=== PATIENT | male | born 1975 | race Caucasian/White ===

== ENCOUNTER 2022-07-22 12:47 | Inpatient (IN) | payer BC ==
[2022-07-22] MEDS ORDERED: THIAMINE 100 MG/ML 2 ML VIAL IVP STA (13:05)
--- NOTE | 2022-07-22 13:11 | ED ---
General Adult HPI - General Chief complaint: Recheck/Abnormal Lab/Rx Stated complaint: Altered Time Seen by Provider: 07/22/22 12:51 Source: patient, EMS, RN notes reviewed Mode of arrival: EMS Limitations: no limitations - History of Present Illness Initial comments: Patient is a pleasant 47-year-old male presenting to the emergency department from [place]. There is concern for altered mental status, history is limited. Patient believes he is here for chronic sciatic pain. Patient states he was recently detoxed a different hospital. Patient went home and did drink alcohol Monday. Patient believes he has been at and heart since Monday now. Patient confronted regarding change in mental status and answers "well there may be some of that "patient denies hallucinations however report states patient has been hallucinating. Patient states he does have some floaters however that is chronic and unchanged for him. Patient does answer some questions inappropriately. Patient answers other questions appropriately. Patient denies suicidal or homicidal thoughts. - Related Data Allergies Allergy/AdvReac Type Severity Reaction Status Date / Time tramadol [From [facility]] Allergy Unknown Verified 07/22/22 13:11 Review of Systems ROS Statement: Those systems with pertinent positive or pertinent negative responses have been documented in the HPI. ROS Other: All systems not noted in ROS Statement are negative. Constitutional: Denies: fever Eyes: Denies: eye pain ENT: Denies: ear pain Respiratory: Denies: cough Cardiovascular: Denies: chest pain Endocrine: Denies: fatigue Gastrointestinal: Denies: abdominal pain Genitourinary: Denies: dysuria Skin: Denies: rash Neurological: Reports: as per HPI Past Medical History Past Medical History: Hypertension History of Any Multi-Drug Resistant Organisms: None Reported Past Surgical History: No Surgical Hx Reported Past Psychological History: Anxiety, Depression Smoking Status: Never smoker Past Alcohol Use History: Daily Past Drug Use History: Cocaine, Heroin, Marijuana General Exam Limitations: no limitations General appearance: alert, in no apparent distress Head exam: Present: atraumatic, normocephalic Eye exam: Present: PERRL, EOMI, scleral icterus ENT exam: Present: normal oropharynx Neck exam: Present: normal inspection Respiratory exam: Present: normal lung sounds bilaterally Cardiovascular Exam: Present: regular rate, normal rhythm GI/Abdominal exam: Present: soft. Absent: tenderness Extremities exam: Present: normal inspection Neurological exam: Present: alert, altered, CN II-XII intact. Absent: motor sensory deficit Expanded Neurological exam: Present: protecting the airway Patient oriented to: Present: person. Absent: place (Patient believes he is in [place]), time (Patient answers the year is 1921 when asked, even when asked to confirm) Cranial nerves: EOM's Intact: Normal Sensory exam: Upper Extremity Light Touch: Normal, Lower Extremity Light Touch: Normal Motor strength exam: RUE: 5, LUE: 5, RLE: 5, LLE: 5 Eye Response: (4) open spontaneously Motor Response: (6) obeys commands Verbal Response: (4) confused conversation Psychiatric exam: Present: normal affect, normal mood Skin exam: Present: normal color Course Vital Signs 07/22/22 12:52 Temperature 97.7 F Pulse Rate 61 Respiratory 18 Rate Blood Pressure 108/61 O2 Sat by Pulse 97 Oximetry - Reevaluation(s) Reevaluation #1: 07/22/22 13:42 Witnessed by nursing staff talking to people who were not in the room. Patient also was complaining that there are puppies in his shoes. EKG Findings - EKG Results: EKG: interpreted by ERMD (Left axis.), sinus rhythm, normal QRS, normal ST/T EKG shows: bradycardia Medical Decision Making - Medical Decision Making Patient reevaluated and updated. Platelet count still pending. Case discussed with Dr. herman Roa, who will admit covering hospital call. Neurology will be placed on consult. - Lab Data Result diagrams: 07/22/22 13:16 07/22/22 13:16 Lab Results 07/22/22 07/22/22 07/22/22 Range/Units 13:16 13:16 13:16 WBC 3.1 L (3.8-10.6) k/uL RBC 3.41 L (4.30-5.90) m/uL Hgb 13.5 (13.0-17.5) gm/dL Hct 38.1 L (39.0-53.0) % MCV 111.8 H (80.0-100.0) fL MCH 39.6 H (25.0-35.0) pg MCHC 35.4 (31.0-37.0) g/dL RDW 13.6 (11.5-15.5) % MPV 11.4 Macrocytosis Marked A PT 14.6 H (9.0-12.0) sec INR 1.4 H (<1.2) APTT 28.9 (22.0-30.0) sec Sodium (137-145) mmol/L Potassium (3.5-5.1) mmol/L Chloride (98-107) mmol/L Carbon Dioxide (22-30) mmol/L Anion Gap mmol/L BUN (9-20) mg/dL Creatinine (0.66-1.25) mg/dL Est GFR (CKD-EPI)AfAm (>60 ml/min/1.73 sqM) Est GFR (CKD-EPI)NonAf (>60 ml/min/1.73 sqM) Glucose (74-99) mg/dL Calcium (8.4-10.2) mg/dL Total Bilirubin (0.2-1.3) mg/dL AST (17-59) U/L ALT (4-49) U/L Alkaline Phosphatase (38-126) U/L Ammonia (<30) umol/L Total Protein (6.3-8.2) g/dL Albumin (3.5-5.0) g/dL Urine Color Dark Brown Urine Appearance Clear (Clear) Urine pH 5.5 (5.0-8.0) Ur Specific [place] 1.029 (1.001-1.035) Urine Protein 1+ H (Negative) Urine Glucose (UA) Negative (Negative) Urine Ketones Negative (Negative) Urine Blood Negative (Negative) Urine Nitrite Negative (Negative) Urine Bilirubin 1+ H (Negative) Urine Urobilinogen 4.0 (<2.0) mg/dL Ur Leukocyte Esterase Negative (Negative) Urine RBC <1 (0-5) /hpf Urine WBC 3 (0-5) /hpf Ur Squamous Epith Cells <1 (0-4) /hpf Urine Bacteria Rare H (None) /hpf Hyaline Casts 4 H (0-2) /lpf Urine Mucus Moderate H (None) /hpf Urine Opiates Screen Not Detected (NotDetected) Ur Oxycodone Screen Not Detected (NotDetected) Urine Methadone Screen Not Detected (NotDetected) Ur Propoxyphene Screen Not Detected (NotDetected) Ur Barbiturates Screen Not Detected (NotDetected) U Tricyclic Antidepress Not Detected (NotDetected) Ur Phencyclidine Scrn Not Detected (NotDetected) Ur Amphetamines Screen Not Detected (NotDetected) U Methamphetamines Scrn Not Detected (NotDetected) U Benzodiazepines Scrn Detected H (NotDetected) Urine Cocaine Screen Not Detected (NotDetected) U Marijuana (THC) Screen Detected H (NotDetected) Serum Alcohol mg/dL 07/22/22 07/22/22 Range/Units 13:16 13:16 WBC (3.8-10.6) k/uL RBC (4.30-5.90) m/uL Hgb (13.0-17.5) gm/dL Hct (39.0-53.0) % MCV (80.0-100.0) fL MCH (25.0-35.0) pg MCHC (31.0-37.0) g/dL RDW (11.5-15.5) % MPV Macrocytosis PT (9.0-12.0) sec INR (<1.2) APTT (22.0-30.0) sec Sodium 135 L (137-145) mmol/L Potassium 3.9 (3.5-5.1) mmol/L Chloride 101 (98-107) mmol/L Carbon Dioxide 27 (22-30) mmol/L Anion Gap 7 mmol/L BUN 16 (9-20) mg/dL Creatinine 0.89 (0.66-1.25) mg/dL Est GFR (CKD-EPI)AfAm >90 (>60 ml/min/1.73 sqM) Est GFR (CKD-EPI)NonAf >90 (>60 ml/min/1.73 sqM) Glucose 103 H (74-99) mg/dL Calcium 8.5 (8.4-10.2) mg/dL Total Bilirubin 4.1 H (0.2-1.3) mg/dL AST 156 H (17-59) U/L ALT 70 H (4-49) U/L Alkaline Phosphatase 72 (38-126) U/L Ammonia 27 (<30) umol/L Total Protein 6.6 (6.3-8.2) g/dL Albumin 3.6 (3.5-5.0) g/dL Urine Color Urine Appearance (Clear) Urine pH (5.0-8.0) Ur Specific [place] (1.001-1.035) Urine Protein (Negative) Urine Glucose (UA) (Negative) Urine Ketones (Negative) Urine Blood (Negative) Urine Nitrite (Negative) Urine Bilirubin (Negative) Urine Urobilinogen (<2.0) mg/dL Ur Leukocyte Esterase (Negative) Urine RBC (0-5) /hpf Urine WBC (0-5) /hpf Ur Squamous Epith Cells (0-4) /hpf Urine Bacteria (None) /hpf Hyaline Casts (0-2) /lpf Urine Mucus (None) /hpf Urine Opiates Screen (NotDetected) Ur Oxycodone Screen (NotDetected) Urine Methadone Screen (NotDetected) Ur Propoxyphene Screen (NotDetected) Ur Barbiturates Screen (NotDetected) U Tricyclic Antidepress (NotDetected) Ur Phencyclidine Scrn (NotDetected) Ur Amphetamines Screen (NotDetected) U Methamphetamines Scrn (NotDetected) U Benzodiazepines Scrn (NotDetected) Urine Cocaine Screen (NotDetected) U Marijuana (THC) Screen (NotDetected) Serum Alcohol <10 mg/dL Disposition Clinical Impression: Altered mental status Disposition: ADMITTED IP TO THIS [facility] Condition: Serious Is patient prescribed a controlled substance at d/c from ED?: No Referrals: Nonstaff,Physician [Primary Care Provider] - 1-2 days Time of Disposition: 14:16
[2022-07-22 13:33] LABS: Basophils % (A) 1 %; Eosinophils # (A) 0.1 k/uL (0-0.7); Eosinophils % (A) 3 %; HCT 38.1 % (39.0-53.0); HGB 13.5 gm/dL (13.0-17.5); Lymphocytes % (A) 32 %; MCH 39.6 pg (25.0-35.0); MCHC 35.4 g/dL (31.0-37.0); MCV 111.8 fL (80.0-100.0); Macrocytosis Marked; Mean Platelet Volume 11.4; Monocytes # (A) 0.3 k/uL (0-1.0); Monocytes % (A) 9 %; Neutrophils # (A) 1.6 k/uL (1.3-7.7); Neutrophils % (A) 53 %; RBC 3.41 m/uL (4.30-5.90); RDW 13.6 % (11.5-15.5); WBC 3.1 k/uL (3.8-10.6)
[2022-07-22 13:46] LABS: Appearance,Urine Clear (Clear); Bacteria,Urine Rare /hpf; Bilirubin,Urine 1+ (Negative); Blood,Urine Negative (Negative); Color,Urine Dark Brown; Glucose,Urine (UA) Negative (Negative); Hyaline Casts,Urine 4 /lpf (0-2); Ketones,Urine Negative (Negative); Leukocyte Esterase,Urine Negative (Negative); Mucus,Urine Moderate /hpf; Nitrite,Urine Negative (Negative); PH, Urine 5.5 (5.0-8.0); Protein,Urine 1+ (Negative); RBC,Urine <1 /hpf (0-5); Specific Gravity,Urine 1.029 (1.001-1.035); Squamous Epithelial Cell,Urine <1 /hpf (0-4); WBC,Urine 3 /hpf (0-5)
[2022-07-22 13:48] LABS: ALT 70 U/L (4-49); AST 156 U/L (17-59); African American GFR (CKD) >90 (>60 ml/min/1.73 sqM); Albumin 3.6 g/dL (3.5-5.0); Alcohol <10 mg/dL; Alkaline Phosphatase 72 U/L (38-126); Anion Gap 7 mmol/L; Blood Urea Nitrogen 16 mg/dL (9-20); Calcium 8.5 mg/dL (8.4-10.2); Carbon Dioxide 27 mmol/L (22-30); Chloride 101 mmol/L (98-107); Glucose 103 mg/dL (74-99); Non-African American GFR(CKD) >90 (>60 ml/min/1.73 sqM); Potassium 3.9 mmol/L (3.5-5.1); Sodium 135 mmol/L (137-145); Total Bilirubin 4.1 mg/dL (0.2-1.3); Total Protein 6.6 g/dL (6.3-8.2)
[2022-07-22 13:49] LABS: INR 1.4 (<1.2); Partial Thromboplastin Time 28.9 sec (22.0-30.0); Prothrombin Time 14.6 sec (9.0-12.0)
--- NOTE | 2022-07-22 13:49 | XR ---
EXAMINATION TYPE: XR chest 2V DATE OF EXAM: 07/22/2022 1:40 PM COMPARISON: None TECHNIQUE: XR chest 2V Frontal and lateral views of the chest. CLINICAL INDICATION:Male, 47 years old with history of altered mental status; FINDINGS: Lungs/Pleura: There is no evidence of pleural effusion, focal consolidation, or pneumothorax. Pulmonary vascularity: Unremarkable. Heart/mediastinum: Cardiomediastinal silhouette is unremarkable. Musculoskeletal: No acute osseous pathology. IMPRESSION: No acute cardiopulmonary disease/process.
[2022-07-22 13:59] LABS: Amphetamine Screen,Urine Not Detected (NotDetected); Barbiturate Screen,Urine Not Detected (NotDetected); Benzodiazepines Screen,Urine Detected (NotDetected); Cocaine Screen,Urine Not Detected (NotDetected); Methadone Screen, Urine Not Detected (NotDetected); Opiate Screen,Urine Not Detected (NotDetected); Oxycodone Screen, Urine Not Detected (NotDetected); Phencyclidine Screen,Urine Not Detected (NotDetected); Tricyclic Antidepressant,Urine Not Detected (NotDetected); Urn Cannabinoid Scrn Detected (NotDetected)
--- NOTE | 2022-07-22 14:06 | CT ---
EXAMINATION TYPE: CT brain wo con DATE OF EXAM: 07/22/2022 COMPARISON: None HISTORY: Altered mental status CT DLP: 1111.6 mGycm. Automated Exposure Control for Dose Reduction was Utilized. TECHNIQUE: CT scan of the head is performed without contrast. FINDINGS: The ventricles, basal cisterns and sulci over the convexities are within normal limits and there is n o mass effect or shift of the midline structures. No abnormal density is seen throughout the brain parenchyma and there is no acute intra or extra-axia l hemorrhage. The posterior fossa including the brainstem, fourth ventricle and cerebellar pontine angles appear gr ossly normal. Intraorbital contents are normal and symmetric. Visualized paranasal sinuses and mastoid air cells ar e well aerated. Calvarium is intact. IMPRESSION: No significant abnormality seen. There is no acute bleed or mass effect
[2022-07-22] MEDS ORDERED: LORazepam 0.5 MG TAB PO PRN (14:16)
[2022-07-22] MEDS ORDERED: NALOXONE 0.4 MG/ML 1 ML VIAL IV PRN ×2 (14:16→15:15)
[2022-07-22] MEDS ORDERED: LORazepam 2 MG/ML INJ IV PRN (14:16)
[2022-07-22] MEDS ORDERED: LORazepam 1 MG TAB PO PRN ×4 (14:16)
[2022-07-22 14:17] LABS: Platelet Count 58 k/uL (150-450)
[2022-07-22] MEDS ORDERED: ACETAMINOPHEN TAB 325 MG TAB PO PRN (15:15)
[2022-07-22] MEDS ORDERED: IBUPROFEN 400 MG TAB PO PRN (15:15)
[2022-07-22] MEDS ORDERED: ONDANSETRON 4 MG TAB PO PRN (15:22)
[2022-07-22] MEDS ORDERED: traZODone HCL 50 MG TAB PO PRN (15:22)
--- NOTE | 2022-07-22 15:32 | P.HPIM ---
History of Present Illness H&P Date: 07/22/22 Chief Complaint: altered mental status 47-year-old male with history of alcoholism, chronic back pain and hypertension who presented to the emergency department from [place] because of concern for altered mental status. Patient believes he is here for chronic sciatic pain. Patient states he was recently detoxed at a different hospital, went home then went to [place]. It was reported that he was having hallucinations, seeing puppies in the room. He also states that he was seeing floaters which is normal for him. He denied auditory hallucinations. Denies suicidal thoughts. He wants to go home today and is currently refusing to stay in the hospital. Evaluation in the emergency department showed WBC count 3.1, hemoglobin 13.5, hematocrit 38.1, platelet count 58, urine tox positive for benzodiazepine and marijuana. Sodium 135, respectively as well as normal. Head CT negative. CXR with nothing acute. EKG with sinus bradycardia. Patient will be admitted for further evaluation and management. Review of Systems Complete review of system performed, pertinent positives per HPI, otherwise negative Past Medical History Past Medical History: Hypertension History of Any Multi-Drug Resistant Organisms: None Reported Past Surgical History: No Surgical Hx Reported Past Psychological History: Anxiety, Depression Smoking Status: Never smoker Past Alcohol Use History: Daily Past Drug Use History: Cocaine, Heroin, Marijuana Medications and Allergies Home Medications Medication Instructions Recorded Confirmed Type Acetaminophen [Tylenol Arthritis] 650 mg PO Q4H PRN MDD 1950 MG 07/22/22 07/22/22 History Calcium, Magnesium, Zinc, With 1 tab PO TID PRN 07/22/22 07/22/22 History Vitamin D Chlorpheniramine Maleate 4 mg PO Q4H PRN 07/22/22 07/22/22 History [Chlor-Trimeton] Famotidine [Pepcid] 20 mg PO BID 07/22/22 07/22/22 History Ibuprofen [Motrin Ib] 600 mg PO Q6H PRN 07/22/22 07/22/22 History LORazepam [Ativan] 1 - 2 mg PO Q4H PRN 07/22/22 07/22/22 History Levsin (Unknown Strength) 1 dose PO QID PRN 07/22/22 07/22/22 History Loperamide HCl [Imodium A-D] 2 - 4 mg PO QID PRN MDD 16MG 07/22/22 07/22/22 History Mag Hydrox/Aluminum Hyd/Simeth 30 ml PO Q4H PRN 07/22/22 07/22/22 History [Mylanta Maximum Strength Liq] Magnesium Hydroxide [Milk of 2,400 mg PO BID PRN 07/22/22 07/22/22 History Magnesia] Multivitamins, Thera [Multivitamin 1 tab PO DAILY 07/22/22 07/22/22 History (formulary)] Thiamine [Vitamin B-1] 100 mg PO DAILY 07/22/22 07/22/22 History cloNIDine HCL [Catapres] 0.1 - 0.3 mg PO Q4H PRN 07/22/22 07/22/22 History guaiFENesin [guaiFENesin Oral 200 mg PO Q4H PRN 07/22/22 07/22/22 History Solution] ondansetron HCL [Zofran] 8 mg PO Q6H PRN 07/22/22 07/22/22 History traZODone HCL [Desyrel] 50 - 150 mg PO HS PRN 07/22/22 07/22/22 History Allergies Allergy/AdvReac Type Severity Reaction Status Date / Time tramadol [From Ultram] Allergy Unknown Verified 07/22/22 14:50 Physical Exam Vitals: Vital Signs Temp Pulse Resp BP Pulse Ox 07/22/22 12:52 97.7 F 61 18 108/61 97 Intake and Output 07/21/22 07/22/22 07/22/22 22:59 06:59 14:59 Other: Weight 72.575 kg Constitutional: No acute distress, conversant, pleasant Eyes:Anicteric sclerae, moist conjunctiva, no lid-lag, PERRLA, ENMT: Oropharynx clear, no erythema, exudates Neck: Supple, FROM, no masses, or JVD, No carotid bruits, No thyromegaly Lungs: Clear to auscultation, Clear to percussion, Normal respiratory effort, no accessory muscle use Cardiovascular: Heart regular in rate and rhythm, No murmurs, gallops, or rubs, No peripheral edema Abdominal: Soft, Nontender, no guarding, rebound or rigidity, Normoactive bowel sounds, No hepatomegaly, No splenomegaly, No palpable mass Skin: Normal temperature, tone, texture, turgor, no induration, No subcutaneous nodules, No rash, lesions, No ulcers Extremities: No digital cyanosis, No clubbing, Pedal pulses intact and symmetrical, Radial pulses intact and symmetrical, No calf tenderness Psychiatric: Alert and oriented to person, place and time, appropriate affect, intact judgement Neuro: Muscles Strength 5/5 in all 4 extremities, Sensation to light touch grossly present throughout, Cranial nerves II-XII grossly intact, no focal sensory deficits Results CBC & Chem 7: 07/22/22 13:16 07/22/22 13:16 Labs: Abnormal Lab Results - Last 24 Hours (Table) 07/22/22 07/22/22 07/22/22 Range/Units 13:16 13:16 13:16 WBC 3.1 L (3.8-10.6) k/uL RBC 3.41 L (4.30-5.90) m/uL Hct 38.1 L (39.0-53.0) % MCV 111.8 H (80.0-100.0) fL MCH 39.6 H (25.0-35.0) pg Plt Count 58 L (150-450) k/uL Macrocytosis Marked A PT 14.6 H (9.0-12.0) sec INR 1.4 H (<1.2) Sodium (137-145) mmol/L Glucose (74-99) mg/dL Total Bilirubin (0.2-1.3) mg/dL AST (17-59) U/L ALT (4-49) U/L Urine Protein 1+ H (Negative) Urine Bilirubin 1+ H (Negative) Urine Bacteria Rare H (None) /hpf Hyaline Casts 4 H (0-2) /lpf Urine Mucus Moderate H (None) /hpf U Benzodiazepines Scrn Detected H (NotDetected) U Marijuana (THC) Screen Detected H (NotDetected) 07/22/22 Range/Units 13:16 WBC (3.8-10.6) k/uL RBC (4.30-5.90) m/uL Hct (39.0-53.0) % MCV (80.0-100.0) fL MCH (25.0-35.0) pg Plt Count (150-450) k/uL Macrocytosis PT (9.0-12.0) sec INR (<1.2) Sodium 135 L (137-145) mmol/L Glucose 103 H (74-99) mg/dL Total Bilirubin 4.1 H (0.2-1.3) mg/dL AST 156 H (17-59) U/L ALT 70 H (4-49) U/L Urine Protein (Negative) Urine Bilirubin (Negative) Urine Bacteria (None) /hpf Hyaline Casts (0-2) /lpf Urine Mucus (None) /hpf U Benzodiazepines Scrn (NotDetected) U Marijuana (THC) Screen (NotDetected) Assessment and Plan Plan: Acute encephalopathy with hallucinations Neurology and psychiatry evaluation He wasnts to leave AMA but can't at this point, not safe, will apply elopement precautions Could be sec to etoh withdrawal, start etoh withdrawal protocol Thiamine, MV, folic acid Leukopenia and thrombocytopenia Likely sec to etoh abuse Marijuana abuse [employer] to quit HTN Chronic back pain Stable Resume meds. Admit to inpatient expected length of stay more than 2 midnights.
[2022-07-22] MEDS: MULTIVITAMINS, THERA 1 EACH TAB PO SCH (18:17)
[2022-07-22] MEDS: FOLIC ACID 1 MG TAB PO SCH (18:17)
[2022-07-23] MEDS: FOLIC ACID 1 MG TAB PO SCH (08:33)
[2022-07-23] MEDS: MULTIVITAMINS, THERA 1 EACH TAB PO SCH (08:34)
[2022-07-23] MEDS ORDERED: MULTIVITAMINS, THERA 1 EACH TAB PO SCH (09:00)
[2022-07-23] MEDS ORDERED: THIAMINE 100 MG TAB PO SCH ×2 (09:00)
--- NOTE | 2022-07-23 09:48 | P.CNNES ---
History of Present Illness Consult date: 07/22/22 Requesting physician: Humphrey Cobos Reason for Consult: Altered mental status History of Present Illness: Patient is a 47-year-old male with history of alcoholism, recently discharged from [place], where he was admitted for alcohol detox for the last 3 days, was supposed to go to rehabilitation, but because of some insurance issues, could not be admitted. He was complaining of sciatic pain in the left leg, therefore came to the hospital by ambulance today at 12:47 PM. Patient was evaluated in the ER by ED staff. He was noted to be confused, hallucinating, which prompted this neurology consultation. Patient mentions that he sees floaters, which he blames on not wearing contacts. He says these are "little floaters". He denies hearing voices, no pain, no suicidal thoughts. He denies any headache, numbness or tingling. Apparently patient was complaining in the ED that he was seeing puppies in his shoes, and some cats and puppies inside his room in the ER. Patient states his last drink was on Monday, 5 days ago. He was in rehab facility on Monday, Monday and . Today he was transferred from [place] to [facility]. Patient says that he was detoxed at [facility] 2 weeks ago, where he stayed for about 3 days. He could not find a place for drug rehabi litation, therefore he signed out AGAINST MEDICAL ADVICE. After he was released from the hospital, he started sneaking alcohol again. He went to [place] stayed there for 3 days before coming here. Patient to be slightly confused, as he thinks he is in [facility]. He believes it is [employer] is the president although he says that he does not follow the politics. Vital signs arrival blood pressure 108/61, pulse rate 61 temperature 97.7. Blood test shows WBC 3.1, hemoglobin 13.5 with elevated MCV 111.8, and platelets 58. INR is 1.4. Sodium 135, potassium is normal. Renal functions normal. AST is elevated 156 and ALT 70. UA is negative. Urine drug screen positive for benzodiazepine and marijuana. Blood alcohol level is <10.0. CT head revealed no significant abnormality. There is no acute bleed or mass effect. I personally reviewed CT head, agree with the findings. Visualized paranasal sinuses are clear. Chest x-ray revealed no acute cardiopulmonary disease. EKG shows sinus bradycardia with heart rate of 55. Patient states that he drinks a pint to a fifth of Crown[employer] whiskey about 5 days a week. He has been drinking like this for last 10 years. Patient has history of hypertension. Denies any tobacco use or drugs. Review of Systems Constitutional: Denies chills, Denies fever Eyes: denies blurred vision, denies pain Ears, nose, mouth and throat: Denies headache, Denies sore throat Cardiovascular: Denies chest pain, Denies shortness of breath Respiratory: Denies cough Gastrointestinal: Denies abdominal pain, Denies diarrhea, Denies nausea, Denies vomiting Musculoskeletal: Denies myalgias Integumentary: Denies pruritus, Denies rash Neurological: Denies numbness, Denies weakness Psychiatric: Denies anxiety, Denies depression Endocrine: Denies fatigue, Denies weight change Past Medical History Past Medical History: Hypertension History of Any Multi-Drug Resistant Organisms: None Reported Past Surgical History: No Surgical Hx Reported Past Psychological History: Anxiety, Depression Smoking Status: Never smoker Past Alcohol Use History: Daily Past Drug Use History: Cocaine, Heroin, Marijuana - Past Family History Father History Unknown: Yes Mother History Unknown: Yes Medications and Allergies Home Medications Medication Instructions Recorded Confirmed Type Acetaminophen [Tylenol Arthritis] 650 mg PO Q4H PRN MDD 1950 MG 07/22/22 07/22/22 History Calcium, Magnesium, Zinc, With 1 tab PO TID PRN 07/22/22 07/22/22 History Vitamin D Chlorpheniramine Maleate 4 mg PO Q4H PRN 07/22/22 07/22/22 History [Chlor-Trimeton] Famotidine [Pepcid] 20 mg PO BID 07/22/22 07/22/22 History Ibuprofen [Motrin Ib] 600 mg PO Q6H PRN 07/22/22 07/22/22 History LORazepam [Ativan] 1 - 2 mg PO Q4H PRN 07/22/22 07/22/22 History Levsin (Unknown Strength) 1 dose PO QID PRN 07/22/22 07/22/22 History Loperamide HCl [Imodium A-D] 2 - 4 mg PO QID PRN MDD 16MG 07/22/22 07/22/22 History Mag Hydrox/Aluminum Hyd/Simeth 30 ml PO Q4H PRN 07/22/22 07/22/22 History [Mylanta Maximum Strength Liq] Magnesium Hydroxide [Milk of 2,400 mg PO BID PRN 07/22/22 07/22/22 History Magnesia] Multivitamins, Thera [Multivitamin 1 tab PO DAILY 07/22/22 07/22/22 History (formulary)] Thiamine [Vitamin B-1] 100 mg PO DAILY 07/22/22 07/22/22 History cloNIDine HCL [Catapres] 0.1 - 0.3 mg PO Q4H PRN 07/22/22 07/22/22 History guaiFENesin [guaiFENesin Oral 200 mg PO Q4H PRN 07/22/22 07/22/22 History Solution] ondansetron HCL [Zofran] 8 mg PO Q6H PRN 07/22/22 07/22/22 History traZODone HCL [Desyrel] 50 - 150 mg PO HS PRN 07/22/22 07/22/22 History Allergies Allergy/AdvReac Type Severity Reaction Status Date / Time bee venom protein (honey bee) Allergy Anaphylaxis Verified 07/22/22 18:30 tramadol [From Ultram] Allergy Unknown Verified 07/22/22 14:50 Physical Examination - Vital Signs Vital Signs: Vital Signs Temp Pulse Resp BP Pulse Ox 07/22/22 12:52 97.7 F 61 18 108/61 97 Intake and Output 07/21/22 07/22/22 07/22/22 22:59 06:59 14:59 Other: Weight 72.575 kg Patient is a middle aged male, in no acute distress. Patient is alert awake, slightly confused. He states that he is in [facility]. He states it is 03/21/2022. He knows it is Monday. Speech and language functions are normal. Patient can name and repeat very well. No aphasia or dysarthria. Attention, concentration and fund of knowledge is slightly limited. On cranial nerve examination, pupils are equal, round and reacting to light, visual purvis are full on confrontation, with no neglect on double simultaneous stimulation. Extraocular muscles are intact with no nystagmus. Face is symmetric, tongue protrudes to the midline. Palatal elevation and sensation normal, hearing and shoulder shrug normal, facial sensation normal. On muscle strength testing, there is no pronator drift and the strength is normal in arms and legs distally and proximally. Deep tendon reflexes are symmetric but hypoactive and plantars downgoing. Sensory to touch is equal with no neglect on double simultaneous stimulation. Cerebellar function showed no ataxia for [id number] testing, although he has mild tremors of outstretched hands. No dysdiadochokinesia. No ataxia for [id number] testing on either side. Tone and bulk of muscles normal. Gait deferred. On general examination, there is no carotid bruit or murmur, S1-S2 audible. Chest is clear on consultation. Abdomen is soft nontender. No organomegaly, bowel sounds present. Peripheral pulses are present. No edema. Results - Laboratory Findings CBC and BMP: 07/22/22 13:16 07/22/22 13:16 Abnormal Lab Findings: Abnormal Labs 07/22/22 07/22/22 07/22/22 13:16 13:16 13:16 WBC 3.1 L RBC 3.41 L Hct 38.1 L MCV 111.8 H MCH 39.6 H Plt Count 58 L Macrocytosis Marked A PT 14.6 H INR 1.4 H Sodium Glucose Total Bilirubin AST ALT Urine Protein 1+ H Urine Bilirubin 1+ H Urine Bacteria Rare H Hyaline Casts 4 H Urine Mucus Moderate H U Benzodiazepines Scrn Detected H U Marijuana (THC) Screen Detected H 07/22/22 13:16 WBC RBC Hct MCV MCH Plt Count Macrocytosis PT INR Sodium 135 L Glucose 103 H Total Bilirubin 4.1 H AST 156 H ALT 70 H Urine Protein Urine Bilirubin Urine Bacteria Hyaline Casts Urine Mucus U Benzodiazepines Scrn U Marijuana (THC) Screen Assessment and Plan Assessment: * Altered mental status with hallucinations, probably delirium. Possible alcohol withdrawal. * Mild pancytopenia, macrocytosis probably due to alcoholism * Elevated liver enzymes * Marijuana use Plan: * Patient appears slightly delirious, likely due to alcohol withdrawal. * Observe overnight, for delirium tremens. * Suggest psychiatry consultation. * Check B12, folate, TSH. * Continue Thiamine, folate. * Discussed with primary physician. Thank you for the consult.
[2022-07-23 09:51] LABS: African American GFR (CKD) 118.3 (60.0-200.0); Albumin 3.3 g/dL (3.8-4.9); Albumin/Globulin Ratio 1.27 (1.60-3.17); Anion Gap 8.8 mmol/L (10.00-18.00); BUN/Creat Ratio 15.33 Ratio (12.00-20.00); Blood Urea Nitrogen 13.8 mg/dL (9.0-27.0); Calcium 9.3 mg/dL (8.7-10.3); Carbon Dioxide 29.2 mmol/L (20.0-27.5); Globulin 2.6 g/dL (1.6-3.3); Non-African American GFR(CKD) 102.1 (60.0-200.0); Potassium 4.7 mmol/L (3.5-5.5); Total Bilirubin 3.1 mg/dL (0.30-1.20); Total Protein 5.9 g/dL (6.2-8.2)
[2022-07-23 09:59] LABS: Basophils # (A) 0.02 X 10*3/uL (0.00-0.10); Basophils % (A) 0.6 %; Eosinophils # (A) 0.11 X 10*3/uL (0.04-0.35); Eosinophils % (A) 3.3 %; HCT 37.9 % (39.6-50.0); HGB 12.6 g/dL (13.0-17.0); Immature Grans, Automated 0.6 %; Immature Platelet Fraction 17.8 % (1.1-6.1); Lymphocytes # (A) 1.26 X 10*3/uL (0.90-5.00); MCH 38.2 pg (27.0-32.0); MCHC 33.2 g/dL (32.0-37.0); MCV 114.8 fL (80.0-97.0); Macrocytosis (M) 3+; Mean Platelet Volume 12.9 fL (9.5-12.2); Monocytes # (A) 0.41 X 10*3/uL (0.20-1.00); Monocytes % (A) 12.3 %; NRBC Per 100 WBC 0 /100 WBCS (0.0-0.0); Neutrophils % (A) 45.2 %; Platelet Count 53 X 10*3/uL (140-440); RDW 14.5 % (11.5-14.5); WBC 3.32 X 10*3/uL (4.50-10.00)
[2022-07-23 12:42] VITALS: BP 121/74; PULSE 58; RESP 18; TEMP 97.5
--- NOTE | 2022-07-23 14:43 | P.DS ---
Providers Date of admission: 07/22/22 14:17 Attending physician: Rhonda Canseco DO Consults: 07/22/22 14:16 Consult Physician Urgent Consulting Provider: Leah Kasper Consult Reason/Comments: ams Do you want consulting provider notified?: Yes 07/23/22 09:20 Consult Physician Urgent Consulting Provider: Elder Rivera Consult Reason/Comments: urgent psych consult. Do you want consulting provider notified?: Yes Primary care physician: Physician Nonstaff Hospital Course: 47-year-old male with history of alcoholism, chronic back pain and hypertension who presented to the emergency department from [place] because of concern for altered mental status. Patient believes he is here for chronic sciatic pain. Patient states he was recently detoxed at a different hospital, went home then went to [facility] [place]. It was reported that he was having hallucinations, seeing puppies in the room. He also states that he was seeing floaters which is normal for him. He denied auditory hallucinations. Denies suicidal thoughts. He wants to go home today and is currently refusing to stay in the hospital. Evaluation in the emergency department showed WBC count 3.1, hemoglobin 13.5, hematocrit 38.1, platelet count 58, urine tox positive for benzodiazepine and marijuana. Sodium 135, respectively as well as normal. Head CT negative. CXR with nothing acute. EKG with sinus bradycardia. Patient will be admitted for further evaluation and management. Patient was seen by psychiatry and neurology. No further workup was needed per neurology. Symptoms are most likely secondary to lingering alcohol withdrawal. Patient was also seen by psychiatry the next day who cleared him for discharge. He was started on acamprosate for alcohol abuse. Patient will be discharged today in stable condition. Patient Condition at Discharge: Serious Plan - Discharge Summary Discharge Rx Participant: No New Discharge Prescriptions: New Acamprosate Calcium [Campral] 666 mg PO TID 30 Days #90 tab Continue ondansetron HCL [Zofran] 8 mg PO Q6H PRN PRN Reason: Nausea traZODone HCL [Desyrel] 50 - 150 mg PO HS PRN PRN Reason: SLEEP Thiamine [Vitamin B-1] 100 mg PO DAILY Mag Hydrox/Aluminum Hyd/Simeth [Mylanta Maximum Strength Liq] 30 ml PO Q4H PRN PRN Reason: Gi Upset cloNIDine HCL [Catapres] 0.1 - 0.3 mg PO Q4H PRN PRN Reason: X72 HOURS, BP >160/100 Multivitamins, Thera [Multivitamin (formulary)] 1 tab PO DAILY Magnesium Hydroxide [Milk of Magnesia] 2,400 mg PO BID PRN PRN Reason: Constipation Levsin (Unknown Strength) 1 dose PO QID PRN PRN Reason: Secretions guaiFENesin [guaiFENesin Oral Solution] 200 mg PO Q4H PRN PRN Reason: Congestion LORazepam [Ativan] 1 - 2 mg PO Q4H PRN PRN Reason: ANXIETY X 48 HOURS Famotidine [Pepcid] 20 mg PO BID Acetaminophen [Tylenol Arthritis] 650 mg PO Q4H PRN MDD 1950 MG PRN Reason: Pain Or Fever > 100.5 Ibuprofen [Motrin Ib] 600 mg PO Q6H PRN PRN Reason: Pain Or Fever > 100.5 Loperamide HCl [Imodium A-D] 2 - 4 mg PO QID PRN MDD 16MG PRN Reason: Diarrhea Chlorpheniramine Maleate [Chlor-Trimeton] 4 mg PO Q4H PRN PRN Reason: Allergy Symptoms Calcium, Magnesium, Zinc, With Vitamin D 1 tab PO TID PRN PRN Reason: SUPPLEMENT Discharge Medication List Acetaminophen [Tylenol Arthritis] 650 mg PO Q4H PRN MDD 1950 MG 07/22/22 [History] Calcium, Magnesium, Zinc, With Vitamin D 1 tab PO TID PRN 07/22/22 [History] Chlorpheniramine Maleate [Chlor-Trimeton] 4 mg PO Q4H PRN 07/22/22 [History] Famotidine [Pepcid] 20 mg PO BID 07/22/22 [History] Ibuprofen [Motrin Ib] 600 mg PO Q6H PRN 07/22/22 [History] LORazepam [Ativan] 1 - 2 mg PO Q4H PRN 07/22/22 [History] Levsin (Unknown Strength) 1 dose PO QID PRN 07/22/22 [History] Loperamide HCl [Imodium A-D] 2 - 4 mg PO QID PRN MDD 16MG 07/22/22 [History] Mag Hydrox/Aluminum Hyd/Simeth [Mylanta Maximum Strength Liq] 30 ml PO Q4H PRN 07/22/22 [History] Magnesium Hydroxide [Milk of Magnesia] 2,400 mg PO BID PRN 07/22/22 [History] Multivitamins, Thera [Multivitamin (formulary)] 1 tab PO DAILY 07/22/22 [History] Thiamine [Vitamin B-1] 100 mg PO DAILY 07/22/22 [History] cloNIDine HCL [Catapres] 0.1 - 0.3 mg PO Q4H PRN 07/22/22 [History] guaiFENesin [guaiFENesin Oral Solution] 200 mg PO Q4H PRN 07/22/22 [History] ondansetron HCL [Zofran] 8 mg PO Q6H PRN 07/22/22 [History] traZODone HCL [Desyrel] 50 - 150 mg PO HS PRN 07/22/22 [History] Acamprosate Calcium [Campral] 666 mg PO TID 30 Days #90 tab 07/23/22 [Rx] Follow up Appointment(s)/Referral(s): Nonstaff,Physician [Primary Care Provider] - 1-2 days Activity/Diet/Wound Care/Special Instructions: Call [facility] when pt d/c -[phone] - nurse to give report and [facility] will send someone to pick the pt up.
--- NOTE | 2022-07-23 14:47 | P.CN ---
Psychiatric Consult - . Consult date: 07/23/22 Consult:: 07/23/22 14:20 IDENTIFYING DATA: This patient is a 47-year-old male who is employed and single REASON FOR REFERRAL: Psychiatry was consulted for altered mental status with visual hallucinations HISTORY OF PRESENT ILLNESS: Patient states that he has been drinking a pint up to a fifth of whiskey at least 5 days in a week recently. He reports that after feeling sick from the drinking "sick of being sick", he decided to go to [facility] for 3 days of detox. After being discharged from here, he had another relapse with his last drink being on 07/18/2022. He reports that after difficult searching, he found placement at [facility] and was there for 3 days. He was hoping to stay there longer and complete the program but he was brought to [facility] on 07/22/22 due to reporting pain with his sciatic nerve. He reported seeing puppies and floaters on 07/22/22 night. While he has been here, patient has been placed on alcohol withdrawal regimen, on thiamine, on multivitamin, and folic acid. He last received Ativan at 1606 on 07/22 and has not needed any on 07/23 so far. He was also evaluated by neurology. Patient was seen bedside this afternoon. He denies auditory and visual hallucinations currently. He reports that since he got a good sleep last night, he has not been seeing any unusual things such as puppies. He wishes to maintain sobriety and return back to [facility] if possible. Patient endorses a history of anxiety with "worrying about everything". He reports that work has been a stressor recently and has triggered couple of panic attacks. He reports good concentration but endorses feeling keyed up and restless at times. He reports having trouble falling asleep at baseline. He denies a history of depression and says that he typically is in a "good" mood. At this time patient denies any suicidal or homicidal ideations, intent or plan. Patient denies any auditory, visual hallucinations and denies any paranoia or delusions. He denies symptoms consistent with es. Patient provided verbal consent for this provider to speak with his aunt Darshana. This provider spoke with Darshana over the phone. Darshana reports that patient has been struggling with alcohol for a long time and would like for him to return back to [facility]. She says that [facility] has been paid for and that the bed is being held for the patient. PAST PSYCHIATRIC HISTORY: Patient denies being on any psychiatric medications.Patient denies any previous psychiatric hospitalizations. Patient denies any psychiatric outpatient follow-up. Patient denies any history of suicide attempts in the past. PAST MEDICAL HISTORY: HTN ALLERGIES: as per EMR. CHEMICAL DEPENDENCY HISTORY: as per HPI. Patient reports that he began drinking occasionally when he was 26 years old. He states that when he was 36 years old, he started drinking a pint occasionally. This increased in frequency until he was drinking a fifth of liquor daily. He denies a history of having withdrawal seizures. Cannabis: Patient reports that he used to use marijuana daily in the past but denies regular use in the past 2 years. However, UDS was positive for THC. Patient denies use of other substances. FAMILY PSYCHIATRIC/SUBSTANCE USE HISTORY: Methamphetamine - older sister SOCIAL HISTORY: Patient reports currently living in [place] with his mom. He states that his parents 10 years ago and his biological father lives in [place]. As one older sister and one younger sister. 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 He denies being or having romantic relationships. He does not have any children. He reports being homosexual. MENTAL STATUS EXAM: General Appearance: Patient appears to be stated age is alert, pleasant, and cooperative. Patient appears to have poor hygiene and grooming wearing hospital gown with fair eye contact. Behavior: Patient is calmly lying in bed without any agitated behavior. Speech: Patient's speech is fluent and nonpressured. Mood/Affect: Patient reports their mood is "fine", affect is congruent Suicidality/Homicidality: Patient denies having any suicidal or homicidal ideation intent or plan. Perceptions: Patient denies any visual hallucinations and denies any auditory hallucinations Though content/process: There is no evidence of any delusional thought content and thought process is linear and goal-directed. Would like to be abstinent from alcohol Memory and concentration: AOX3, grossly intact for the purposes of this session. Judgment and insight: fair IMPRESSIONS: Delirium secondary to Alcohol use disorder, severe - resolved Alcohol use disorder, severe Generalized anxiety disorder PLAN: -At this time patient DOES NOT meet criteria for inpatient psychiatric admission. -Delirium precautions recommended with patient including - avoiding use of narcotics and STAFF ANESTHETIST sedatives, limit anticholinergic medications when possible, frequent re-orientation, minimize use of restraints, open window shades during the day and close them at night -Would recommend the following medication changes/additions: Campral 666 mg TID for alcohol abstinence. Discussed side effects and risks. -CIWA protocol with PRN Ativan for alcohol withdrawal. Continue to monitor vital signs. Patient is currently on day 5 of withdrawal - No 1:1 sitter needed at this time as patient is not currently an imminent threat to themselves -Embedded Hardware Engineer spoke with patient about substance abuse and the harmful effects on medical and mental health, patient verbally understood and agreed. -automotive worker foreman to provide patient substance use treatment resources including AA/NA meetings in the community. automotive worker foreman to coordinate transfer to [facility] following medical clearance for alcohol rehab. Encourage outpatient psychotherapy -Patient is agreeable with the above plan -Communicated plan to patient's nurse -Psychiatry will sign off at this time -Please contact with any questions.
[2022-07-23] MEDS ORDERED: ACAMPROSATE CALCIUM 333 MG TABLET.DR PO SCH (16:00)
--- NOTE | 2022-07-24 12:47 | P.PN ---
Subjective Progress Note Date: 07/23/22 Patient is laying comfortably in the bed. Offers no complaints. Denies headache. Denies hallucinations. Objective - Vital Signs Vital signs: Vital Signs Temp 97.5 F L 07/23/22 11:55 Pulse 58 L 07/23/22 11:55 Resp 18 07/23/22 11:55 BP 121/74 07/23/22 11:55 Pulse Ox 95 07/23/22 11:55 FiO2 Intake & Output 07/22/22 07/23/22 07/23/22 18:59 06:59 18:59 Weight 72.575 kg Other: # Voids 3 - Exam Nonfocal. Mentation normal. - Labs CBC & Chem 7: 07/23/22 06:02 07/23/22 06:02 Labs: Abnormal Lab Results - Last 24 Hours (Table) 07/23/22 07/23/22 Range/Units 06:02 06:02 WBC 3.32 L (4.50-10.00) X 10*3/uL RBC 3.30 L (4.40-5.60) X 10*6/uL Hgb 12.6 L (13.0-17.0) g/dL Hct 37.9 L (39.6-50.0) % MCV 114.8 H (80.0-97.0) fL MCH 38.2 H (27.0-32.0) pg Plt Count 53 L (140-440) X 10*3/uL Plt Count Comment DECREASED A MPV 12.9 H (9.5-12.2) fL Neutrophils # 1.50 L (1.80-7.70) X 10*3/uL Immature Plt Fraction 17.8 H (1.1-6.1) % Carbon Dioxide 29.2 H (20.0-27.5) mmol/L Anion Gap 8.80 L (10.00-18.00) mmol/L Total Bilirubin 3.10 H (0.30-1.20) mg/dL AST 131 H (14-35) U/L ALT 78 H (10-49) U/L Total Protein 5.9 L (6.2-8.2) g/dL Albumin 3.3 L (3.8-4.9) g/dL Albumin/Globulin Ratio 1.27 L (1.60-3.17) g/dL Assessment and Plan Assessment: * Altered mental status with hallucinations, probably delirium. Possible alcohol withdrawal. * Mild pancytopenia, macrocytosis probably due to alcoholism * Elevated liver enzymes * Marijuana use Plan: * Delirium, resolved * Appreciate psychiatry input. * Await B12, folate, TSH. * Continue Thiamine, folate. * Neurologically clear for discharge.
== END 2022-07-23 17:01 | DRG 897 ==
LOC: EC 12:47 → 4SSUR 14:17 → 5NMEDONC 15:14
PROVIDERS: ADMIT Internal Medicine; ATTEND Internal Medicine
DX: F10.231 Alcohol dependence with withdrawal delirium (principal); D61.818 Other pancytopenia; G93.40 Encephalopathy, unspecified; F12.10 Cannabis abuse, uncomplicated; Z71.51 Drug abuse counseling and surveillance of drug abuser; D75.89 Other specified diseases of blood and blood-forming organs; F32.A Depression, unspecified; R74.8 Abnormal levels of other serum enzymes; F41.0 Panic disorder [episodic paroxysmal anxiety]; G89.29 Other chronic pain; R00.1 Bradycardia, unspecified; I10 Essential (primary) hypertension; M54.30 Sciatica, unspecified side; F14.11 Cocaine abuse, in remission; F11.11 Opioid abuse, in remission; M19.90 Unspecified osteoarthritis, unspecified site; Z88.5 Allergy status to narcotic agent; Z91.030 Bee allergy status; Z28.310 Unvaccinated for COVID-19; Z28.21 Immunization not carried out because of patient refusal
CPT/HCPCS: 36415; 70450; 71046; 80053; 80306; 80320; 81001; 82140; 82607; 82746; 84443; 85025; 85610; 85730; 86780; 93005; 96374; 99285